=== PATIENT | male | born 1970 | race African-American/Black ===

== ENCOUNTER 2018-07-19 15:49 | Emergency (ER) | payer SELFPAY ==
[~2018-07-19] VITALS: Ht 182.9 cm; Wt 80.0 kg
[2018-07-19 15:56] VITALS: BP 196/123
== END 2018-07-19 18:19 | disposition left against medical advice (07) ==
LOC: ER 15:49
DX: Z53.21 Procedure and treatment not carried out due to patient leaving prior to being seen by health care provider (principal)